=== PATIENT | female | born 1965 | race Caucasian/White ===

== ENCOUNTER 2020-07-18 12:14 | Emergency (ER) | payer OTHER, MEDICARE ==
[2020-07-18 12:32] VITALS: BP 132/78; PULSE 80; RESP 18; TEMP 98
[2020-07-18] MEDS ORDERED: HYDROmorphone 0.5 MG/0.5 ML SYRINGE IVP STA (12:46)
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
--- NOTE | 2020-07-18 13:28 | XR ---
Right ankle HISTORY: Trauma and pain 3 views of the right ankle Postop changes are noted to the distal right fibula, distal right tibia with screws in place, wire fi xation at the medial malleolus shows fracture through the wire distally at the anterior wire, there a re pins also extended at this level, nonunion is noted at the medial malleolar fracture. Osteophytic changes are present at the tibiotalar joint. Ossific densities distal to the fibula are well-corticat ed and not felt likely to be acute. Cortical thickening present in the distal tibia laterally, distal fibula medially, there may be bony ankylosis. There is sclerotic density within the distal metaphyse al right tibia which is indeterminate, there may been prior implant, difficult to exclude infection. Bone mineralization somewhat reduced. Postop changes are noted to the calcaneus, there is some persis tent lucency present. Some spurring present at the intertarsal joints. 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 Post, postprocedural changes as described. No acute fracture or dislocation is evide nt.
--- NOTE | 2020-07-18 13:31 | XR ---
Left femur HISTORY: Trauma and pain Frontal and lateral views of the left femur submitted on 4 images Bone mineralization, joint spaces in the hip and alignment are maintained. Osteoarthritic changes not ed of the left knee. IMPRESSION: No fracture or dislocation.
[2020-07-18] MEDS ORDERED: BACITRACIN OINT 1 EACH PACKET TOPICAL ONE (13:58)
[2020-07-18] MEDS ORDERED: ACET/COD 300 MG/30 MG STARTER PACK 6 TAB BTL PO STA (14:18)
== END 2020-07-18 14:20 | disposition home or self-care (01) ==
LOC: EC 12:14
DX: S70.12XA Contusion of left thigh, initial encounter (principal); S93.401A Sprain of unspecified ligament of right ankle, initial encounter; S50.811A Abrasion of right forearm, initial encounter; F17.200 Nicotine dependence, unspecified, uncomplicated; Z88.5 Allergy status to narcotic agent; V47.5XXA Car driver injured in collision with fixed or stationary object in traffic accident, initial encounter; Y92.410 Unspecified street and highway as the place of occurrence of the external cause
CPT/HCPCS: 73552; 73610; 99284; 96374; J1170